=== PATIENT | male | born 1930 | race Caucasian/White ===

== ENCOUNTER → 2017-11-20 | Outpatient (CLI) | payer OTHER | LOC: FCPNEURO 21:00 | PROVIDERS: ATTEND Psychiatry & Neurology Sleep Medicine | DX: G47.33 Obstructive sleep apnea (adult) (pediatric) (principal); G47.34 Idiopathic sleep related nonobstructive alveolar hypoventilation; G47.61 Periodic limb movement disorder ==

== ENCOUNTER 2018-12-13 15:05 | Emergency (ER) | payer OTHER ==
--- NOTE | 2018-12-13 15:47 | EDPHY ---
H & P Time Seen by Provider: 12/13/18 15:38 HPI/ROS: Chief complaint. Hand swelling HPI. 88-year-old male with right hand swelling for 5 days. No injury though he notes that he pushes down with his right hand quite a bit up to get out of his recliner chair. He does some have some hand pain with movement. Swelling goes up to mid upper arm. No fever. He is supposed to wear oxygen 2 liters/ minute continuously however he uses it only at night with his CPAP. He denies chest pain, cough, shortness of breath. His room air saturation was 71% man increased to 92% on 5 L. no abdominal pain. No swelling to his lower legs or left arm. ROS 10 systems were reviewed and negative with the exception of the elements mentioned in the history of present illness Past Medical/Surgical History: Hypertension, BPH, appendectomy, bilateral knee replacement, oxygen at night, hypothyroid Social History: , nonsmoker, no alcohol Smoking Status: Former smoker Physical Exam: General Appearance: Alert well-developed male mild distress vital signs significant heart rate 119 and O2 saturation 71% on room air Eyes: Pupils equal and round no pallor or injection. ENT, Mouth: Mucous membranes are moist. Respiratory: There are no retractions, lungs are clear to auscultation. Cardiovascular: Tachycardia regular rate rhythm Gastrointestinal: Abdomen is soft and nontender, no masses, bowel sounds normal. Neurological: Awake and alert, sensory and motor exams grossly normal. Skin: Warm and dry, no rashes. Musculoskeletal: Neck is supple nontender. Extremities right hand diffusely swollen. No focal areas of tenderness. No obvious deformity. No erythema. Swelling goes to above the elbow Psychiatric: Patient is oriented X 3, there is no agitation. Constitutional: Initial Vital Signs Heart Rate 104 H 12/13/18 15:10 Respiratory Rate 18 12/13/18 15:10 O2 Sat (%) 93 12/13/18 15:10 O2 Delivery Mode Nasal Cannula O2 (L/minute) 2 Allergies/Adverse Reactions: Penicillins Allergy (Severe, Verified 12/13/18 15:11) Rash strawberry [[place]] Allergy (Severe, Verified 12/13/18 15:11) Rash Home Medications: Medication Instructions Recorded Alpha Lipoic Acid 12/13/18 Aspirin 12/13/18 Excedrin Tablet (*) 12/13/18 Finasteride 12/13/18 Gabapentin 12/13/18 HYDROcodone BITARTRATE 12/13/18 Levothyroxine 12/13/18 Tamsulosin HCl 12/13/18 Valsartan 12/13/18 Vitamin D3 12/13/18 Zantac 12/13/18 amLODIPine BESYLATE 12/13/18 Medical Decision Making - Diagnostics EKG Interpretation: EKG interpreted by me shows sinus tachycardia. Left axis deviation. Possibly old inferior CO. QRS is otherwise normal. No significant ST elevation or depression. No arrhythmia. The rate is 106 Imaging Results: Imaging Impressions Extremity Venous Study 12/13/18 15:57 Impression: Negative for right upper extremity DVT. Findings and recommendations discussed with JODEE MORALES at 1732 hour, 2018. Chest X-Ray 12/13/18 15:58 Impression: Possible pulmonary venous hypertension, superior mediastinal mass and/or ascending aortic aneurysm. Consider obtaining a routine PA and lateral chest for better evaluation of the cardiothoracic equilibrium and mediastinal contours. An alternative would be chest CT, if the patient is unable to be in an upright position. Results called to Dr. Jodee Morales at 16:52 PM. 2. Right Hand, 3 views History: Swelling Findings: There is diffuse swelling of the hand. There is no soft tissue gas or radiopaque foreign material. There is moderate osteoarthritic change of the joints between the navicular and multangular bones and at the base of the thumb. Overall mineralization is normal. There is no erosive change, evidence for hypertrophic osteoarthropathy or occult fracture. Alignment is anatomic. Impression: [place] soft tissue swelling of undetermined etiology. Hand X-Ray 12/13/18 15:58 Impression: Possible pulmonary venous hypertension, superior mediastinal mass and/or ascending aortic aneurysm. Consider obtaining a routine PA and lateral chest for better evaluation of the cardiothoracic equilibrium and mediastinal contours. An alternative would be chest CT, if the patient is unable to be in an upright position. Results called to Dr. Jodee Morales at 16:52 PM. 2. Right Hand, 3 views History: Swelling Findings: There is diffuse swelling of the hand. There is no soft tissue gas or radiopaque foreign material. There is moderate osteoarthritic change of the joints between the navicular and multangular bones and at the base of the thumb. Overall mineralization is normal. There is no erosive change, evidence for hypertrophic osteoarthropathy or occult fracture. Alignment is anatomic. Impression: [place] soft tissue swelling of undetermined etiology. Chest/Thorax CTA 12/13/18 17:25 Impression: 1. Heterogeneous mass in the left anterior mediastinum likely originates from thyroid. There are prominent prevascular and supraclavicular lymph nodes. This lesion exhibits mass effect on the trachea and esophagus and possibly invades the esophagus at the thoracic inlet. This is suspicious for underlying malignancy and would consider biopsy. 2. Negative for pulmonary embolus. 3. Evaluation of the venous structures is limited by contrast timing. There are however collaterals in the right chest wall with narrowing of the right brachiocephalic vein. There is also narrowing of the venous structures between the clavicle and first rib. It is unclear if this represents thoracic outlet syndrome or obstruction from other cause. 4. Bilateral pulmonary nodules, as described. Recommend follow-up chest CT in 6 months. 5. Superior compression deformities of T8 and L1. There are lucencies throughout the vertebral bodies thought to represent hemangiomas. Findings and recommendations discussed with JODEE MORALES at 1922 hour, 2018. Chest x-ray interpreted by me shows tracheal deviation and possible CHF Hand x-ray is negative for fracture dislocation Ultrasound right upper extremity is negative for DVT Chest CT shows a mass in the upper mediastinum possibly be originating from the thyroid. Multiple lymph nodes. Mass effect on the trachea. Suspicious for malignancy. No PE. There appears to be some compression of the veins on the right subclavian area. No obvious subclavian DVT Procedures: IV normal saline ED Course/Re-evaluation: 97% pulse ox while sitting on 2 L. Chemistry tube clotted and needs to be redrawn Re-evaluation at 5:20 p.m.. Patient is stable. Patient, his , and I discussed imaging and lab results. We discussed treatment plan including recommendation for CT of his chest. He expresses understanding Re-evaluation at 7:30 p.m. Patient is stable. The patient and his and I discussed imaging lab EKG findings. We discussed recommendation for admission for further evaluation and evaluation of the mass in the right upper extremity swelling. The patient refuses admission. The patient and I discussed risks and benefits of this and importance of follow-up. He is encouraged to return for any worsening symptoms. I would like him to follow up with Oncology. He agrees. The patient is clearly able to make reasonable decisions. Differential Diagnosis: I considered DVT, pulmonary embolus, fracture. Appears the patient has a thyroid mass and compression of the right upper extremity veins in the subclavian area likely causing the swelling. As I told the patient and his I think that is suspicious for malignancy - Data Points Laboratory Results: Laboratory Results 12/13/18 16:21 12/13/18 17:50 12/13/18 12/13/18 12/13/18 17:50 16:21 16:21 WBC RBC Hgb Hct MCV MCH MCHC RDW Plt Count MPV Neut % (Auto) Lymph % (Auto) Glynn % (Auto) Eos % (Auto) Baso % (Auto) Nucleat RBC Rel Count Absolute Neuts (auto) Absolute Lymphs (auto) Absolute Monos (auto) Absolute Eos (auto) Absolute Basos (auto) Absolute Nucleated RBC Immature Gran % Immature Gran # Platelet Estimate Polychromasia Hypochromasia Microcytic Cells Tear Drop Cells Elliptocytes Keratocytes PT INR D-Dimer Turbidity REJ Sodium 134 mEq/L L mEq/L REJ (135-145) Potassium 5.3 mEq/L H mEq/L REJ (3.5-5.2) Chloride 98 mEq/L mEq/L REJ (97-110) Carbon Dioxide 28 mEq/l mEq/l REJ (22-31) Anion Gap 8 mEq/L mEq/L REJ (6-14) BUN 20 mg/dL mg/dL REJ (7-23) Creatinine 0.9 mg/dL mg/dL REJ (0.7-1.3) Estimated GFR > 60 REJ Glucose 92 mg/dL mg/dL REJ (70-100) Calcium 9.3 mg/dL mg/dL REJ (8.5-10.4) POC Troponin I 0.08 ng/mL ng/mL (0.00-0.08) Troponin I < 0.012 ng/mL ng/mL (0.000-0.034) NT-Pro-B Natriuret Pep REJ Specimen Hemolysis REJ 12/13/18 12/13/18 16:21 16:21 WBC 11.02 10^3/uL H 10^3/uL (3.80-9.50) RBC 6.22 10^6/uL 10^6/uL (4.40-6.38) Hgb 15.7 g/dL g/dL (13.7-17.5) Hct 53.8 % H % (40.0-51.0) MCV 86.5 fL fL (81.5-99.8) MCH 25.2 pg L pg (27.9-34.1) MCHC 29.2 g/dL L g/dL (32.4-36.7) RDW 22.2 % H % (11.5-15.2) Plt Count 295 10^3/uL 10^3/uL (150-400) MPV TNP Neut % (Auto) 83.6 % H % (39.3-74.2) Lymph % (Auto) 7.2 % L % (15.0-45.0) Glynn % (Auto) 5.9 % % (4.5-13.0) Eos % (Auto) 2.0 % % (0.6-7.6) Baso % (Auto) 0.8 % % (0.3-1.7) Nucleat RBC Rel Count 0.0 % % (0.0-0.2) Absolute Neuts (auto) 9.21 10^3/uL H 10^3/uL (1.70-6.50) Absolute Lymphs (auto) 0.79 10^3/uL L 10^3/uL (1.00-3.00) Absolute Monos (auto) 0.65 10^3/uL 10^3/uL (0.30-0.80) Absolute Eos (auto) 0.22 10^3/uL 10^3/uL (0.03-0.40) Absolute Basos (auto) 0.09 10^3/uL 10^3/uL (0.02-0.10) Absolute Nucleated RBC 0.00 10^3/uL 10^3/uL (0-0.01) Immature Gran % 0.5 % % (0.0-1.1) Immature Gran # 0.06 10^3/uL 10^3/uL (0.00-0.10) Platelet Estimate ADEQUATE (ADEQ) Polychromasia 1+ H Hypochromasia 2+ H Microcytic Cells 1+ H Tear Drop Cells 1+ H Elliptocytes 1+ H Keratocytes 1+ H PT 14.8 SEC SEC (12.0-15.0) INR 1.14 (0.83-1.16) D-Dimer 0.82 ug/mLFEU H ug/mLFEU (0.00-0.50) Turbidity Sodium Potassium Chloride Carbon Dioxide Anion Gap BUN Creatinine Estimated GFR Glucose Calcium POC Troponin I Troponin I NT-Pro-B Natriuret Pep Specimen Hemolysis Medications Given: Discontinued Medications Sodium Chloride (Ns) 500 mls @ 1,000 mls/hr IV EDNOW ONE PRN Reason: Protocol Stop: 12/13/18 16:29 Last Admin: 12/13/18 18:00 Dose: 500 mls Point of Care Test Results: Chemistry 12/13/18 16:21 POC Troponin I 0.08 ng/mL ng/mL (0.00-0.08) Departure - Departure Disposition: Against Medical Advice Clinical Impression: Swelling of right upper extremity, Chest mass Condition: Fair Instructions: Dyspnea (ED) Additional Instructions: Wear your oxygen all the time Keep the right arm elevated as much as possible Return for worsening arm swelling or trouble breathing Please call the oncologist tomorrow for further evaluation of your chest mass Referrals: ANILA BARKER [Primary Care Provider] - 1-2 days without fail Carley Collado MD [Medical Doctor] - 1-2 days without fail
[2018-12-13] MEDS ORDERED: NS 500 ML IV ONE (16:00)
[2018-12-13 16:32] LABS: PLATELET COUNT 295 10^3/uL (150-400)
[2018-12-13 16:37] LABS: INR 1.14 (0.83-1.16); PROTIME(PATIENT) 14.8 SEC (12.0-15.0)
[2018-12-13] MEDS ORDERED: IOHEXOL 300 mgI/ML (OMNIPAQUE) 150 ML BTL IV ONE (17:27)
[2018-12-13 20:08] VITALS: BP 165/105
--- NOTE | 2018-12-13 20:46 | CPEKG ---
Test Reason : OPEN Blood Pressure : / mmHG Vent. Rate : 106 BPM Atrial Rate : 106 BPM P-R Int : 203 ms QRS Dur : 100 ms QT Int : 349 ms P-R-T Axes : 050 -74 046 degrees QTc Int : 464 ms Sinus tachycardia Ventricular premature complex Probable left atrial enlargement Inferior infarct, old Anterior infarct, old Confirmed by Jodee Morales ([id number]) on 12/13/2018 8:46:13 PM Referred By: JODEE MORALES Confirmed By:Jodee Morales
== END 2018-12-13 20:12 | disposition left against medical advice (07) ==
DX: M79.89 Other specified soft tissue disorders (principal); R22.2 Localized swelling, mass and lump, trunk; E86.9 Volume depletion, unspecified; Z88.0 Allergy status to penicillin; Z99.81 Dependence on supplemental oxygen
CPT/HCPCS: 71045; 71275; 73130; 93005; 93971; 99285; Q9967; 84484-ER

== ENCOUNTER 2018-12-17 13:52 | Observation (INO) | payer OTHER ==
[2018-12-17] MEDS ORDERED: ONDANSETRON 4 MG/2 ML VIAL IVP PRN (15:56)
[2018-12-17] MEDS ORDERED: ONDANSETRON DISINTEGRATING 4 MG TAB PO PRN (15:56)
[2018-12-17] MEDS ORDERED: ACETAMINOPHEN 325 MG TAB PO PRN (15:56)
--- NOTE | 2018-12-17 16:20 | PDGENHP ---
<Zulay Landers - Last Filed: 12/17/18 16:51> History and Physical - Chief Complaint Mediastinum mass - History of Present Illness HPI: This is an 88 y/o male with history of colon cancer and former smoker presenting as a direct admit for biopsy of his suspected mediastinum mass that was identified on 12/13/18. He presented to the ER on the with c/o non- traumatic right upper extremity swelling. Multiple images were taken inclduing RUE US, hand x-ray, CXR and Chest CTA with results of: no RUE DVT however noted collaterals in the right chest wall with narrowing of the right brachiocephalic vein as well as a narrowing of the venous structures between the clavicle and first rib. He does have bilateral pulmonary nodules but more pressing is the heterogeneous mass in the left anterior mediastinum with likelihood of originating from the thyroid. The lesion is noted to exhibit mass effect on the trachea and esophagus with the possibility of invading at the thoracic inlet. He was offered admission to the hospital but he refused because "I had been in there for 5 hours and I was tired of it." It was recommended he follow up with oncology which he did today with Dr. Nasim Augustine who then sent the pt here for a biopsy. He denies chest pains, palpitations, nausea, vomiting, fever or chills. He is being admitted for a biopsy and observation. Past Medical History 1. Malignant colon cancer 2. Chronic respiratory failure w/ hypoxia. Chronic oxygen wearer. 3. HTN 4. BPH 5. Hypothyroidism 6. Restless leg syndrome 7. Insomnia 8. GERD Past Surgical History 1. Appendectomy 2. Bilateral knee replacements 3. T&A 4. Partial colon removal s/p malignant cancer (1994) Social 1. , lives in [place]. 2. Former smoker. Denies illicit drug use or alcohol. History Information - Allergies/Home Medication List Allergies/Adverse Reactions: Penicillins Allergy (Severe, Verified 12/13/18 15:11) Rash strawberry [[place]] Allergy (Severe, Verified 12/13/18 15:11) Rash Home Medications: Cholecalciferol Vit D3 [Vitamin D3 (*)] 2,000 units PO HS 12/13/18 [Last Taken 12/16/18 20:00] Finasteride [Proscar 5 MG (*)] 5 mg PO HS 12/13/18 [Last Taken 12/16/18 20:00] Gabapentin [Neurontin 300 MG (*)] 900 mg PO BID@12/13/18 [Last Taken 12/16 20:00] Hydrocodone/Acetaminophen [[place] 7.5-325 Tablet] 1 - 2 tab PO Q6 PRN 12/13/18 [ Last Taken 12/17/18 08:00] Tamsulosin HCl [Flomax 0.4 MG (*)] 0.4 mg PO HS 12/13/18 [Last Taken 12/16/18 20 :00] Valsartan/Hydrochlorothiazide [Valsartan-Hctz 160-25 mg Tab] 1 tab PO DAILY [Last Taken 12/17/18 08:00] amLODIPine BESYLATE [Norvasc 5 mg (*)] 5 mg PO HS 12/13/18 [Last Taken 12/16/18 20:00] Docusate Sodium [Colace 100 MG (*)] 300 mg PO HS 12/17/18 [Last Taken 12/16/18 20:00] Herbals/Supplements -Info Only 1 ea PO DAILY 12/17/18 [Last Taken Unknown] Levothyroxine [Synthroid 125 mcg (*)] 125 mcg PO SUMOTUTH@12/17/18 [Last Taken 12/16/18 20:00] Levothyroxine [Synthroid 125 mcg (*)] 250 mcg PO WEFRSA@20 12/17/18 [Last Taken 12/15/18 20:00] Multivitamins [Multivitamin (*)] 1 tab PO HS 12/17/18 [Last Taken 12/16/18 20:00 ] Omeprazole 20 mg PO BID 12/17/18 [Last Taken 12/17/18 08:00] Ranitidine HCl [Zantac] 150 mg PO DAILY PRN 12/17/18 [Last Taken Unknown] Vit A/Vit C/Vit E/Zinc/Copper [Preservision Tablet] 2 tab PO DAILY 12/17/18 [ Last Taken 12/17/18 08:00] I have personally reviewed and updated: family history, medical history, social history, surgical history Past Medical History: See HPI list - Surgical History Additional surgical history: See HPI list - Family History Positive for: cancer (Brothers - he is unsure what kind of cancer), hypertension - Social History Smoking Status: Former smoker Alcohol Use: None Drug Use: None Review of Systems Review of Systems: ROS: 10pt was reviewed & negative except for what was stated in HPI & below Physical Exam Physical Exam: Imaging was reviewed. Today's lab work is pending. Case discussed with admitting physician, Dr. Sharon Teixeira. Temp Pulse Resp BP Pulse Ox 36.7 C 105 H 12 150/87 H 90 L 12/17/18 15:29 12/17/18 15:29 12/17/18 15:29 12/17/18 15:29 12/17/18 15:29 O2 (L/minute) 2 Constitutional: no apparent distress, appears nourished, not in pain Eyes: PERRL, anicteric sclera, EOMI Ears, Nose, Mouth, Throat: moist mucous membranes, hearing normal, ears appear normal, no oral mucosal ulcers Cardiovascular: regular rate and rhythym, no murmur, rub, or gallop, tachycardia , No edema Peripheral Pulses: 2+: dorsalis-pedis (R) (Radial 2+), dorsalis-pedis (L) ( Radial 2+) Respiratory: reduced air movement (Bilateral lower bases) Gastrointestinal: normoactive bowel sounds, soft, non-tender abdomen, no palpable masses Genitourinary: no bladder fullness, no bladder tenderness Skin: warm, normal color, no rashes or abrasions, no fluctuance, no induration, No mottled Musculoskeletal: full muscle strength, no muscle tenderness, normal joint ROM, no joint effusions Neurologic: AAOx3, sensation intact bilaterally, CN II-XII Intact Psychiatric: interacting appropriately, not anxious, not encephalopathic, thought process linear Lymph, Heme, Immunologic: other (RUE - moderately edematous from fingers up to elbow. Difficulty making a fist. Neuro intact.) Assessment & Plan Plan: This is an 88 y/o male directly admitted under the direction of oncologist Dr. Augustine requiring a biopsy of his suspected mediastinum mass that was discovered upon imaging on 12/13/18. 1. Suspected mediastinum mass: suspected origin likely from thyroid. Recent TSH /Free T4 perform at [facility] on 10/31/18 results of 2.32/1.39. -Biopsy in AM; NPO at midnight tonight -Consulted oncology - I spoke to Dr. Baird who is aware of the pt and upcoming procedure -PT/PTT pending 2. Hx of iron deficient anemia: Recently was evaluated [facility] in September 2018 w/ EGD and colonoscopy and was found to have a gastric ulcer which is most likely the etiology of his anemia. The distal sigmoid colon polyp was found to be tubular adenoma showing low grade dysplasia w/ no evidence of high-grade dysplasia or malignancy. He is to f/u with with GI in late November 2018. 3. GERD: on omeprazole, famotidine. 4. BPH: on proscar, tamsulosin 5. Chronic pain: RLS exacerbates his pain to his lower back. Utilizes [place] and gabapentin. 6. HTN: stable. On amlodipine, diovan. 7. Hypothyroidism: on levothyroxine. 8. Chronic hypoxic respiratory failure: He should be wearing 2L NC supplemental O2 at all times however it was noted he only wears it @ HS with his CPAP. Since his visit to the ER on 12/13/18, he reports he is continually wearing his oxygen. On RA, his sats were in the 70s. Continue use of oxygen. Diet: Regular, NPO at midnight tonight VTE ppx: SCDs Code: Full Dispo: Admit to obs <Sharon Teixeira - Last Filed: 12/17/18 21:43> History and Physical - History of Present Illness Review of Systems Review of Systems: Physical Exam Physical Exam: Temp Pulse Resp BP Pulse Ox 36.5 C 105 H 16 153/86 H 92 12/17/18 19:22 12/17/18 15:29 12/17/18 19:22 12/17/18 19:47 12/17/18 19:22 O2 (L/minute) 2 Lab Data & Imaging Review 12/17/18 17:15 12/17/18 17:15 WBC 11.06 10^3/uL (3.80-9.50) H 12/17/18 17:15 RBC 6.10 10^6/uL (4.40-6.38) 12/17/18 17:15 Hgb 15.2 g/dL (13.7-17.5) 12/17/18 17:15 Hct 51.9 % (40.0-51.0) H 12/17/18 17:15 MCV 85.1 fL (81.5-99.8) 12/17/18 17:15 MCH 24.9 pg (27.9-34.1) L 12/17/18 17:15 MCHC 29.3 g/dL (32.4-36.7) L 12/17/18 17:15 RDW 21.2 % (11.5-15.2) H 12/17/18 17:15 Plt Count 304 10^3/uL (150-400) 12/17/18 17:15 MPV 9.8 fL (8.7-11.7) 12/17/18 17:15 Neut % (Auto) 81.2 % (39.3-74.2) H 12/17/18 17:15 Lymph % (Auto) 8.0 % (15.0-45.0) L 12/17/18 17:15 Bertie % (Auto) 7.6 % (4.5-13.0) 12/17/18 17:15 Eos % (Auto) 1.8 % (0.6-7.6) 12/17/18 17:15 Baso % (Auto) 0.7 % (0.3-1.7) 12/17/18 17:15 Nucleat RBC Rel Count 0.0 % (0.0-0.2) 12/17/18 17:15 Absolute Neuts (auto) 8.98 10^3/uL (1.70-6.50) H 12/17/18 17:15 Absolute Lymphs (auto) 0.88 10^3/uL (1.00-3.00) L 12/17/18 17:15 Absolute Monos (auto) 0.84 10^3/uL (0.30-0.80) H 12/17/18 17:15 Absolute Eos (auto) 0.20 10^3/uL (0.03-0.40) 12/17/18 17:15 Absolute Basos (auto) 0.08 10^3/uL (0.02-0.10) 12/17/18 17:15 Absolute Nucleated RBC 0.00 10^3/uL (0-0.01) 12/17/18 17:15 Immature Gran % 0.7 % (0.0-1.1) 12/17/18 17:15 Immature Gran # 0.08 10^3/uL (0.00-0.10) 12/17/18 17:15 PT 14.8 SEC (12.0-15.0) 12/17/18 17:15 INR 1.14 (0.83-1.16) 12/17/18 17:15 Sodium 133 mEq/L (135-145) L 12/17/18 17:15 Potassium 4.9 mEq/L (3.5-5.2) 12/17/18 17:15 Chloride 98 mEq/L (97-110) 12/17/18 17:15 Carbon Dioxide 29 mEq/l (22-31) 12/17/18 17:15 Anion Gap 6 mEq/L (6-14) 12/17/18 17:15 BUN 20 mg/dL (7-23) 12/17/18 17:15 Creatinine 0.8 mg/dL (0.7-1.3) 12/17/18 17:15 Estimated GFR > 60 12/17/18 17:15 Glucose 84 mg/dL (70-100) 12/17/18 17:15 Calcium 8.9 mg/dL (8.5-10.4) 12/17/18 17:15 Total Bilirubin 0.6 mg/dL (0.1-1.4) 12/17/18 17:15 AST 19 IU/L (17-59) 12/17/18 17:15 ALT 25 IU/L (21-72) 12/17/18 17:15 Alkaline Phosphatase 75 IU/L (38-126) 12/17/18 17:15 Total Protein 6.5 g/dL (6.3-8.2) 12/17/18 17:15 Albumin 3.6 g/dL (3.5-5.0) 12/17/18 17:15 Assessment & Plan Plan: Patient seen and evaluated independently and care plan reviewed with EITAN Landers. Agree with her assessment and plan as outlined above. Please see separate documentation for further details.
[2018-12-17 17:31] LABS: PLATELET COUNT 304 10^3/uL (150-400)
[2018-12-17 17:43] LABS: INR 1.14 (0.83-1.16); PROTIME(PATIENT) 14.8 SEC (12.0-15.0)
[2018-12-17] MEDS: PANTOPRAZOLE SODIUM 40 MG TAB PO SCH (19:46)
[2018-12-17] MEDS: GABAPENTIN 300 MG CAP PO SCH (19:46)
[2018-12-17] MEDS: HYDROCODONE/APAP 10/325 TAB PO PRN (19:48)
[2018-12-17] MEDS ORDERED: LEVOTHYROXINE 125 MCG TAB PO SCH (20:00)
[2018-12-17] MEDS ORDERED: FINASTERIDE 5 MG TAB PO SCH (21:00)
[2018-12-17] MEDS ORDERED: CHOLECALCIFEROL VIT D3 2,000 UNITS TAB/CAP PO SCH (21:00)
[2018-12-17] MEDS ORDERED: MULTIVITAMINS 1 EACH TAB PO SCH (21:00)
[2018-12-17] MEDS ORDERED: TAMSULOSIN HCL 0.4 MG CAP PO SCH (21:00)
[2018-12-17] MEDS ORDERED: amLODIPine BESYLATE 5 MG TAB PO SCH (21:00)
[2018-12-17] MEDS ORDERED: DOCUSATE SODIUM 100 MG CAP PO SCH (21:00)
--- NOTE | 2018-12-17 21:44 | HOSPPROG ---
Hospitalist Progress Note Assessment/Plan: 88 yo M with PMH of colon cancer and chronic hypoxic respiratory failure presenting as direct admit for biopsy of mediastinal mass # mediastinal mass: appears to be extending from the thyroid gland and is extending mass effect on trachea and surrounding structures. Sent by oncology for biopsy which will likely be performed in am. # chronic hypoxic respiratory failure: at baseline, suspect due to underlying copd based on ct # GERD: continue ppi/h2b # BPH # HTN: mildly elevated currently, continue op meds # observation status Patient new to my care. Old records reviewed and summarized as above. Care plan reviewed with IETAN Landers, please see her documentation for further details. Objective: Vital Signs Temp Pulse Resp BP Pulse Ox 36.5 C 105 H 16 153/86 H 92 12/17/18 19:22 12/17/18 15:29 12/17/18 19:22 12/17/18 19:47 12/17/18 19:22 Laboratory Results 12/17/18 17:15 12/17/18 17:15 12/16/18 12/17/18 12/18/18 05:59 05:59 05:59 Intake Total 350 Balance 350 PT 14.8 SEC (12.0-15.0) 12/17/18 17:15 INR 1.14 (0.83-1.16) 12/17/18 17:15 ICD10 Worksheet Patient Problems: Problems Problem Status Onset Mediastinal mass Acute - ICD10 Problem Qualifiers (1) Mediastinal mass
--- NOTE | 2018-12-18 08:56 | PDCONSULT ---
[employer] Note: Patient is an 88 year old male with anterior mediastinal mass admitted for urgent biopsy given right sided thoracic outlet obstruction. Patient reports that her last 2 weeks or so has noticed increased swelling and weakness in his right upper extremity is seen by his primary care provider who directed him to the [facility] emergency room. He had a CAT scan of his chest on 12/13/2018 which showed a 3.9 x 4.1 cm left anterior mediastinal mass. There is also some slight supraclavicular and prevascular lymphadenopathy there was question about whether the mass invaded the esophagus. Interim x-rays of the hands and duplex ultrasound of the right upper extremity were unremarkable. The CT scan that was performed did not give a specific etiology for what was found to represent right-sided thoracic outlet syndrome. Patient was admitted for an urgent biopsy to start treatment as soon as possible given this thoracic outlet syndrome. Patient denies any dysphagia or odynophagia. He does have pain in his right upper extremity in addition to swelling. The pain is worse with movement of the right upper extremity. He denies any paresthesias in the right upper extremity. Patient denies any fevers chills or drenching night sweats. He denies any changes in his weight or appetite. PMH -HTN -Sensorineural hearing loss -Chronic hypoxemic respiratory -BPH -Hypothyroidism -Insomnia -GERD PSH -Hernia repair -Appendectomy -Bilateral TKA -colectomy for ?colon cancer Social History -20 pack year smoking history, quit long time ago. No significant alcohol or drug use Family History: -Father with lung cancer Review of Systems: A complete 12 point ROS was negative unless indicated in the HPI Physical Examination: ECOG 1 General: no acute distress HEENT: pupils equal round and reactive to light, no icterus or pallor Neck: supple, no adenopathy, engorged neck veins right neck Cardiovascular: regular in rate and rhythm without rubs thrills or gallops Chest: Clear to auscultation and percussion in bilateral posterior lungs Abdomen: soft nontender, non distended, no HSM Extremities: no LE edema, RUE with edema (worse in hand) with some redness warmth of 5th DIP and along medial aspect of forearm up to elbow Neurologic: CN II-XII are intact, 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, 4-/5 extension flexion at elbow (significant pain with ROM) Medications and allergies are reviewed and are in his electronic medical record Labs and imaging reviewed WBC 9.67 10^3/uL (3.80-9.50) H 12/18/18 04:35 RBC 5.86 10^6/uL (4.40-6.38) 12/18/18 04:35 Hgb 15.0 g/dL (13.7-17.5) 12/18/18 04:35 Hct 50.9 % (40.0-51.0) 12/18/18 04:35 MCV 86.9 fL (81.5-99.8) 12/18/18 04:35 MCH 25.6 pg (27.9-34.1) L 12/18/18 04:35 MCHC 29.5 g/dL (32.4-36.7) L 12/18/18 04:35 RDW 20.3 % (11.5-15.2) H 12/18/18 04:35 Plt Count 293 10^3/uL (150-400) 12/18/18 04:35 MPV 9.8 fL (8.7-11.7) 12/17/18 17:15 Neut % (Auto) 81.2 % (39.3-74.2) H 12/17/18 17:15 Lymph % (Auto) 8.0 % (15.0-45.0) L 12/17/18 17:15 Jones % (Auto) 7.6 % (4.5-13.0) 12/17/18 17:15 Eos % (Auto) 1.8 % (0.6-7.6) 12/17/18 17:15 Baso % (Auto) 0.7 % (0.3-1.7) 12/17/18 17:15 Nucleat RBC Rel Count 0.0 % (0.0-0.2) 12/17/18 17:15 Absolute Neuts (auto) 8.98 10^3/uL (1.70-6.50) H 12/17/18 17:15 Absolute Lymphs (auto) 0.88 10^3/uL (1.00-3.00) L 12/17/18 17:15 Absolute Monos (auto) 0.84 10^3/uL (0.30-0.80) H 12/17/18 17:15 Absolute Eos (auto) 0.20 10^3/uL (0.03-0.40) 12/17/18 17:15 Absolute Basos (auto) 0.08 10^3/uL (0.02-0.10) 12/17/18 17:15 Absolute Nucleated RBC 0.00 10^3/uL (0-0.01) 12/17/18 17:15 Immature Gran % 0.7 % (0.0-1.1) 12/17/18 17:15 Immature Gran # 0.08 10^3/uL (0.00-0.10) 12/17/18 17:15 PT 14.8 SEC (12.0-15.0) 12/17/18 17:15 INR 1.14 (0.83-1.16) 12/17/18 17:15 Sodium 135 mEq/L (135-145) 12/18/18 04:35 Potassium 4.2 mEq/L (3.5-5.2) 12/18/18 04:35 Chloride 99 mEq/L (97-110) 12/18/18 04:35 Carbon Dioxide 28 mEq/l (22-31) 12/18/18 04:35 Anion Gap 8 mEq/L (6-14) 12/18/18 04:35 BUN 20 mg/dL (7-23) 12/18/18 04:35 Creatinine 0.8 mg/dL (0.7-1.3) 12/18/18 04:35 Estimated GFR > 60 12/18/18 04:35 Glucose 82 mg/dL (70-100) 12/18/18 04:35 Calcium 8.9 mg/dL (8.5-10.4) 12/18/18 04:35 Total Bilirubin 0.6 mg/dL (0.1-1.4) 12/18/18 04:35 AST 17 IU/L (17-59) 12/18/18 04:35 ALT 15 IU/L (21-72) L 12/18/18 04:35 Alkaline Phosphatase 74 IU/L (38-126) 12/18/18 04:35 Total Protein 5.8 g/dL (6.3-8.2) L 12/18/18 04:35 Albumin 3.2 g/dL (3.5-5.0) L 12/18/18 04:35 Assessment and plan: Patient is an 88-year-old male who presents for urgent biopsy after being found to have right sided thoracic outlet syndrome in the setting of a left anterior mediastinal mass thought to perhaps originating from the thyroid. Problem #1 - right-sided thoracic outlet syndrome On review of the CT scans and review of the radiologist's impressions there is no clear etiology for the patient's compression of vascular structures from his right upper extremity. Patient clearly has symptoms of both vascular occlusion as well as perhaps some brachial plexopathy however weakness is difficult to test given the patient has pretty significant pain with motor testing. His sensations appear to be intact in the right upper extremity and he does not have arterial compromise. This is clearly a manifestation of his underlying malignancy for which biopsy is needed before treatment even if palliative can be performed. Problem #2 - left anterior mediastinal mass. Considerations are lymphoma although with esophageal invasion seems less likely , a germ cell tumor although not the appropriate or expected age group for that. This may represent a thyroid malignancy as it is felt to originate from the thyroid based on imaging. The biopsy should give us the information we need to begin definitive therapy.
[2018-12-18] MEDS: HYDROCODONE/APAP 10/325 TAB PO PRN (08:59)
[2018-12-18] MEDS: PANTOPRAZOLE SODIUM 40 MG TAB PO SCH (08:59)
[2018-12-18] MEDS ORDERED: VALSARTAN/HCTZ 80-12.5MG TAB PO SCH (09:00)
[2018-12-18] MEDS ORDERED: FAMOTIDINE 20 MG TAB PO PRN (09:00)
[2018-12-18] MEDS ORDERED: PRESERVISION AREDS2 FORMULA EYE VIT 1 EACH PO SCH (09:00)
--- NOTE | 2018-12-18 09:18 | HOSPPROG ---
Hospitalist Progress Note Assessment/Plan: #Mediastinal mass: appears to be extending from the thyroid gland and is extending mass effect on trachea and surrounding structures -BL pulm nodules on CT (personally reviewed) -awaiting CT-guided biopsy # chronic hypoxic respiratory failure: at baseline, suspect due to underlying copd based on ct # GERD: continue ppi/h2b # BPH # HTN: mildly elevated currently, continue op meds Objective: Vital Signs Temp Pulse Resp BP Pulse Ox 36.9 C 99 16 151/88 H 90 L 12/18/18 07:36 12/18/18 07:36 12/18/18 07:36 12/18/18 07:36 12/18/18 07:36 Laboratory Results 12/18/18 04:35 12/18/18 04:35 12/17/18 12/18/18 12/19/18 05:59 05:59 05:59 Intake Total 650 Balance 650 PT 14.8 SEC (12.0-15.0) 12/17/18 17:15 INR 1.14 (0.83-1.16) 12/17/18 17:15 ICD10 Worksheet Patient Problems: Problems Problem Status Onset Mediastinal mass Acute
[2018-12-18] MEDS: GABAPENTIN 300 MG CAP PO SCH (11:47)
[2018-12-18] MEDS ORDERED: LIDOCAINE 1% 300 MG/30 ML SDV ONE ×2 (12:41→13:47)
[2018-12-18] MEDS ORDERED: HYDROCODONE/APAP 10/325 TAB PO PRN (12:45)
[2018-12-18 15:31] VITALS: BP 154/86
--- NOTE | 2018-12-18 17:28 | GDS ---
[f rep st] DISCHARGE SUMMARY DISCHARGE DIAGNOSES: 1. Mediastinal mass. 2. Chronic hypoxemic respiratory failure on 3 L. 3. Gastroesophageal reflux disease. 4. BPH. 5. Hypertension. 6. Hypothyroidism. 7. Insomnia. 8. Malignant colon cancer. HISTORY OF PRESENT ILLNESS: 88-year-old male with a history of colon cancer, presented as a direct admit for biopsy of a mediastinal mass identified 2018. He presented to the ER at that time complaining of nontraumatic right upper extremity swelling and pain. Multiple images were taken including right upper extremity ultrasound, hand x-ray, chest x-ray and CTA which were positive for collaterals of the right chest wall with narrowing of the right brachiocephalic vein and narrowing of venous structures between clavicle and 1st rib consistent with thoracic outlet syndrome. CTA showed bilateral pulmonary nodules and a heterogeneous mass in the left anterior mediastinum. HOSPITAL COURSE BY PROBLEM: 1. Mediastinal mass: s/p post CT-guided biopsy without issue. Follow up with Dr. Baird. 2. Chronic hypoxemic respiratory failure at baseline 3 L. 3. GERD. PPI. 4. BPH. Home medications. 5. Hypertension. Continue home medications. 6. Right arm pain secondary to thoracic outlet syndrome. Continue home pain medication. DISPOSITION: Patient is stable for discharge. NEW MEDICATIONS: None. FOLLOWUP: Dr. Baird. PHYSICAL EXAMINATION: Today: VITAL SIGNS: Temperature 36.5, blood pressure 154/86, heart rate in the 90s, respirations 16, 87% on 2.5 L, 90 on 3. GENERAL : He is well appearing, no acute distress. HEENT: PERRLA. Moist mucous membranes. CV: Regular rate and rhythm. CHEST: Lungs are clear but diminished. ABDOMEN: Soft, nontender, nondistended. Positive bowel sounds. MUSCULOSKELETAL: Right upper extremity swollen, tender over his hand and wrist. NEURO: 2 through 12 intact. PSYCH: Alert and oriented x3. Time spent on discharge greater than 30 minutes, reviewing records labs and discussing case with Dr. Baird. /[id number]/MODL MTDD
[2018-12-19] MEDS ORDERED: LEVOTHYROXINE 125 MCG TAB PO SCH (20:00)
== END 2018-12-18 17:18 | disposition home or self-care (01) ==
LOC: UNDOADMOB 13:52 → F1N 13:52 → UNDOADMOB 14:55
PROVIDERS: ADMIT Internal Medicine; ATTEND Internal Medicine
PROC: BH4CZZZ Ultrasonography of Head and Neck (ICD-10-PCS; principal; 2018-12-17)
PROC: 0JB53ZX Excision of Left Neck Subcutaneous Tissue and Fascia, Percutaneous Approach, Diagnostic (ICD-10-PCS; principal; 2018-12-17)
DX: C73 Malignant neoplasm of thyroid gland (principal); G54.0 Brachial plexus disorders; J96.11 Chronic respiratory failure with hypoxia; Z99.81 Dependence on supplemental oxygen; K25.7 Chronic gastric ulcer without hemorrhage or perforation; K21.9 Gastro-esophageal reflux disease without esophagitis; N40.0 Benign prostatic hyperplasia without lower urinary tract symptoms; I10 Essential (primary) hypertension; E03.9 Hypothyroidism, unspecified; G47.33 Obstructive sleep apnea (adult) (pediatric); Z85.038 Personal history of other malignant neoplasm of large intestine; Z87.891 Personal history of nicotine dependence; Z90.49 Acquired absence of other specified parts of digestive tract
CPT/HCPCS: 20206; 76536; G0378; G0379